=== PATIENT | male | born 1980 | race Two or more races ===

== ENCOUNTER → 2021-06-13 | Outpatient (CLI) | payer OTHER ==
--- NOTE | 2021-06-13 17:42 | RAD ---
XR EXAM OF ANKLE_RIGHT 2 VIEWS History: Right ankle pain. Surgery 4 years ago. Comparison: None. Technique: 2 views of the right ankle. Findings: Osseous mineralization is normal. There is postsurgical arthrodesis of the right talus and calcaneus. Suspect posttraumatic appearance of the calcaneus. The ankle mortise and talar dome are intact. Dege nerative changes of the dorsal talus. Atherosclerotic calcifications in the small vessels of the ankl e. Impression: 1. Talocalcaneal arthrodesis. No acute osseous abnormality. Electronically signed by: Raúl Baron MD (06/13/2021 5:40 PM) [id number]
--- NOTE | 2021-06-13 17:44 | RAD ---
XR LUMBAR SPINE 2-3V History: Low back pain. Comparison: None. Technique: 2 views of the lumbar spine. Findings: There are 5 non-rib bearing lumbar vertebral segments. There is no evidence of fracture. No destructive osseous lesions. Mild anterolisthesis of L5 on S1 with L5 pars interarticularis defects. Mild facet hypertrophy L3-L4. Mild to moderate disc space narrowing at L5-S1. Sacroiliac joints are unremarkable. Vascular calcifications of the iliac arteries visualized in the pelvis. IMPRESSION: 1. L5 pars interarticularis defects with grade 1 isthmic anterolisthesis of L5 on S1 and mild to mod erate disc space narrowing. Electronically signed by: Raúl Baron MD (06/13/2021 5:42 PM) [id number]
== END ==
LOC: EDSEX 12:12 → RAD 12:12
PROVIDERS: ATTEND Family Medicine
DX: Z02.71 Encounter for disability determination (principal); M47.816 Spondylosis without myelopathy or radiculopathy, lumbar region; M48.07 Spinal stenosis, lumbosacral region; M43.17 Spondylolisthesis, lumbosacral region; M19.071 Primary osteoarthritis, right ankle and foot; M25.871 Other specified joint disorders, right ankle and foot
CPT/HCPCS: 72100; 73600